=== PATIENT | male | born 1975 | race African-American/Black ===

== ENCOUNTER 2022-12-13 13:26 | Emergency (ER) | payer MEDICAID ==
[~2022-12-13] VITALS: Ht 170.2 cm; Wt 61.0 kg
[2022-12-13 13:48] VITALS: BP 136/94
== END 2022-12-13 16:25 | disposition home or self-care (01) ==
LOC: ER 13:26
DX: S01.511A Laceration without foreign body of lip, initial encounter (principal); X58.XXXA Exposure to other specified factors, initial encounter; Y93.89 Activity, other specified; Y92.89 Other specified places as the place of occurrence of the external cause; Y99.8 Other external cause status
CPT/HCPCS: 99281

== ENCOUNTER 2023-11-13 09:19 | Emergency (ER) | payer MEDICAID ==
[~2023-11-13] VITALS: Ht 160 cm; Wt 77.0 kg
[2023-11-13 09:20] VITALS: O2SAT 99
[2023-11-13] MEDS: ACETAMINOPHEN 325MG TABLET PO ONE (10:00)
[2023-11-13] MEDS: KETOROLAC 60MG/2ML VIAL IM ONE (11:02)
[2023-11-13] MEDS: AMOXICILLIN/POTASSIUM CLAVULANATE 875/125MG TAB PO ONE (11:13)
[2023-11-13] MEDS ORDERED: AMOX1TAB16 MT (11:40)
[2023-11-13] MEDS ORDERED: NAPR220C61 MT (11:40)
[2023-11-13 13:32] VITALS: BP 148/89; PULSE 99; RESP 19; TEMP 97.3
== END 2023-11-13 13:33 | disposition home or self-care (01) ==
LOC: ER 09:28
DX: S02.609A Fracture of mandible, unspecified, initial encounter for closed fracture (principal); G89.11 Acute pain due to trauma; Y08.89XA Assault by other specified means, initial encounter; Y93.89 Activity, other specified; Y92.89 Other specified places as the place of occurrence of the external cause; Y99.8 Other external cause status
CPT/HCPCS: 70450; 70486; 96372; 99285; J1885; Z7610

== ENCOUNTER 2025-04-02 06:49 | Emergency (ER) | payer OTHER ==
[~2025-04-02] VITALS: Ht 177.8 cm; Wt 78.0 kg
[~2025-04-02 06:49] MED LIST: AMOX1TAB16 MT; NAPR220C61 MT
[2025-04-02 06:50] VITALS: O2SAT 98
[2025-04-02] MEDS: KETOROLAC 30MG/ML VIAL IM ONE (07:40)
[2025-04-02 07:45] VITALS: BP 169/75; PULSE 51; RESP 13; TEMP 36.4; O2SAT 98
== END 2025-04-02 08:24 | disposition home or self-care (01) ==
LOC: ER 07:33
DX: S20.219A Contusion of unspecified front wall of thorax, initial encounter (principal); F10.90 Alcohol use, unspecified, uncomplicated; V03.10XA Pedestrian on foot injured in collision with car, pick-up truck or van in traffic accident, initial encounter; Y93.89 Activity, other specified; Y92.89 Other specified places as the place of occurrence of the external cause; Y99.8 Other external cause status; Y90.9 Presence of alcohol in blood, level not specified
CPT/HCPCS: 99285; 71250; 71045; 96372; J1885